=== PATIENT | female | born 1965 | race Hispanic/Latino ===

== ENCOUNTER 2020-08-26 18:16 | Observation (INO) | payer MEDICARE, OTHER ==
[2020-08-26] MEDS ORDERED: Aspirin 325 MG TAB PO SCH (22:45)
--- NOTE | 2020-08-27 01:30 | HP ---
REASON FOR ADMISSION: Right facial droop. HISTORY OF PRESENT ILLNESS: This is a 55-year-old female patient, who was noted to have right facial droop day of her presentation. She is not sure when that happened. This was noticed by her sister. Currently, her facial droop is improving. Otherwise, she denies weakness in her upper or lower extremities. No visual changes. No tingling or numbness in her upper or lower extremities. Just a slurred speech that is associated with her facial droop. PAST MEDICAL HISTORY: 1. Depression. 2. Anxiety. ALLERGIES: NO NOTE OF ANY DRUG ALLERGIES. SOCIAL HISTORY: She does not smoke. Does not drink alcohol. FAMILY HISTORY: Negative for premature coronary artery disease. REVIEW OF SYSTEMS: All systems reviewed except the facial droop found to be negative. PHYSICAL EXAMINATION: GENERAL: Awake, alert, oriented, does not appear in distress. VITAL SIGNS: Her blood pressure is 115/73, heart rate of 56, saturating 99% room air. HEAD: Nontraumatic, normocephalic. Pupils equal, reactive. Extraocular muscles intact. Nonicteric sclerae. Well injected conjunctivae. Oral mucosa normal. Nasal mucosa normal. NECK: Supple. No adenopathy. No murmur. Thyroid is not palpable. Trachea is midline. No supraclavicular adenopathy. HEART: S1, S2 regular. No murmur. No gallops. No friction rubs. No displacement of PMI. LUNGS: Clear to auscultation bilaterally. No wheezes, rhonchi, or crackles. ABDOMEN: Bowel sounds are positive. Nontender abdomen. No hepatosplenomegaly. EXTREMITIES: No lower extremity edema. No cyanosis. NEURO: She does have right facial droop, but normal motor function throughout all four extremities. Normal sensory function as well. LABORATORY DATA: Blood work shows WBC of 8.9, hemoglobin 13.3, platelets 248. INR 1, PTT 29.8, sodium 137, potassium 3.8, BUN 18, bicarb of 20, glucose 116. CT of the head shows no acute finding. CT angio of the head and neck, no central intracranial arterial occlusion. EKG shows normal sinus rhythm with nonspecific ST-segment abnormality. ASSESSMENT AND PLAN: This is a 55-year-old female patient, who is presenting with right facial droop that has been improving. She was offered tPA since she was improving, both the patient and her sister opted against tPA. The patient will be admitted to the stroke unit and we will do an MRI of the brain without contrast and we will consult Neurology. Also have her on full-dose aspirin on daily bases. We will do an echocardiogram, we will check HbA1c. We will check lipid profile. For DVT prophylaxis, she will be SCDs and Lovenox. Next, she did have a low bicarb level. We will recheck her electrolytes in the morning. Job ID: [id number]
[2020-08-27 03:09] VITALS: BMI 42.3
[2020-08-27 04:10] LABS: Hemoglobin A1c 5.6 % (4.0-6.0)
[2020-08-27 04:28] LABS: Anion Gap 13 mmol/L (10-20); BUN (Urea Nitrogen) 20 mg/dL (9.8-20.1); Calc. Creatinine Clearance 122 mL/min (70-130); Calcium 9.1 mg/dL (7.8-10.44); Carbon Dioxide 24 mmol/L (22-29); Cardiac Risk 3.7 (Less than 4.5); Chloride 107 mmol/L (98-107); Cholesterol 168 mg/dl (< 200 Desired); Estimated GFR-MDRD 63; Glucose 95 mg/dL (70-105); HDL Cholesterol 45 mg/dL (>60 Neg Risk); LDL Cholesterol, Calculated 99 mg/dL; Potassium 3.8 mmol/L (3.5-5.1); Sodium 140 mmol/L (136-145); Triglycerides 121 mg/dL (Less than 150)
[2020-08-27] MEDS ORDERED: Aspirin 325 mg Enteric Coated Tablet PO SCH (09:00)
[2020-08-27] MEDS ORDERED: Enoxaparin Sodium 40 MG/0.4 ML SYRINGE SC SCH (09:00)
--- NOTE | 2020-08-27 09:13 | PDOC.HOSPP ---
- Subjective Encounter Date: 08/27/20 Encounter Time: 09:45 Subjective: Patient denies complaints. Sister in room notes that right facial droop much better. No more slurred speech. - Objective Vital Signs & Weight: Vital Signs (12 hours) Temp Pulse Resp BP Pulse Ox 08/27/20 08:00 97.7 F 68 13 133/74 98 Weight Weight 246 lb 14.684 oz Result Diagrams: 08/27/20 03:49 Hospitalist ROS - Review of Systems Constitutional: denies: fever, chills Respiratory: denies: cough, shortness of breath Cardiovascular: denies: chest pain, palpitations Gastrointestinal: denies: nausea, vomiting, abdominal pain - Exam General Appearance: NAD, awake alert ENT: moist mucosa Heart: RRR, no murmur, no gallops, no rubs Respiratory: CTAB, no wheezes, no rales, no ronchi Gastrointestinal: soft, non-tender, non-distended, normal bowel sounds Neurological - other findings: minimal right facial droop Psychiatric: normal affect, normal behavior, A&O x 3 Hosp A/P (1) Facial droop Code(s): R29.810 - FACIAL WEAKNESS Status: Acute Plan: right sided, improving (2) Depression Code(s): F32.9 - MAJOR DEPRESSIVE DISORDER, SINGLE EPISODE, UNSPECIFIED Status: Chronic Qualifiers: Depression Type: major depressive disorder (3) Anxiety Code(s): F41.9 - ANXIETY DISORDER, UNSPECIFIED Status: Chronic - Plan MRI, ASA, Stroke team, neurology. Check lipid profile- normal. If does have stroke will need statin. ECHO If MRI negative could be mostly resolved TIA. Doubt Tang's Palsy with fast improvement of symptoms.
--- NOTE | 2020-08-27 09:13 | MRI ---
MRI of thebrain: 08/27/2020 COMPARISON:None available HISTORY:Recent stroke protocol, slurred speech with facial droop on the right TECHNIQUE: Multiplanar multisequence MR imaging of thebrain without contrast Findings:The diffusion weighted imaging demonstrates no evidence for acute infarction. The axial grad ient echo imaging demonstrates no evidence for intracranial hemorrhage. No intracranial hemorrhage, midline shift, or mass effect. No significant paranasal sinus opacificati on. Arterial flow voids at the axial level of the skull base appear grossly unremarkable on the T2-weighted imaging. Regional bone marrow signal intensity within normal limits. IMPRESSION:No acute findings.
[2020-08-27 10:06] LABS: Cardiac Risk 3.3 (Less than 4.5)
[2020-08-27] MEDS ORDERED: Enoxaparin Sodium 40 MG/0.4 ML SYRINGE ONE (10:50)
[2020-08-27] MEDS ORDERED: Aspirin 325 MG TAB ONE (10:50)
--- NOTE | 2020-08-27 13:57 | CON ---
NEUROLOGY CONSULTATION DATE OF CONSULTATION: 08/27/2020 REASON FOR CONSULTATION: Right facial droop and slurred speech. HISTORY OF PRESENT ILLNESS: Ms. Wanda Ureña is a 55-year-old female, who presented to the emergency room at outside Hospital with right facial droop and slurred speech. The history is provided by the patient's sister. According to the sister, she was told by her mother that she had right facial droop and speech was slurred around noon yesterday. She went to her mother's house to check on her and found that she had slurred speech and right facial droop. She took her to the [facility] with a head CT was done, which was negative for acute intracranial pathology. CTA of the head and neck was done, which was negative for hemodynamically significant stenosis. She was transferred here for further evaluation. Her symptoms resolved around 06:00 p.m. yesterday. The patient denies any focal weakness, focal paresthesias, nausea, vomiting, headache, chest pain, abdominal pain, recent illness, or recent exposure to COVID. Patient is disabled and lives with her sister. She has history of significant depression and anxiety. REVIEW OF SYSTEMS: All systems reviewed and were negative except for the pertinent positives and negatives mentioned in the HPI. ALLERGIES: NO KNOWN DRUG ALLERGIES. SOCIAL HISTORY: The patient is independent. Lives with her sister. Denies smoking, alcohol, or illegal drug abuse. FAMILY HISTORY: No family history of premature coronary artery disease or stroke. Vital Signs & Weight: Vital Signs (12 hours) Temp Pulse Resp BP Pulse Ox 08/27/20 08:00 97.7 F 68 13 133/74 98 Weight Weight 246 lb 14.684 oz PHYSICAL EXAMINATION: VITAL SIGNS: Blood pressure 117/70, pulse 60, respiratory rate 18. General Appearance: NAD, awake alert ENT: moist mucosa Heart: RRR, no murmur, no gallops, no rubs Respiratory: CTAB, no wheezes, no rales, no ronchi Gastrointestinal: soft, non-tender, non-distended, normal bowel sounds Neurological - Mental status, the patient is alert and oriented to person, place, and time. Speech is clear. Recent and remote memory, intact. Cranial nerves 2 through 12 intact except seventh septal right facial droop. Motor, muscle tone and bulk are normal. Moving all 4 extremities equally and symmetrically. Strength 5/5 bilaterally. Sensory intact. Cerebellar; finger-nose testing intact. Gait deferred due to patient's safety reasons. DATA REVIEWED: I reviewed the labs and also the CT scan of the head, which showed no acute intracranial pathology. CT angiogram of the head and neck did not reveal hemodynamically significant stenosis. EKG showed normal sinus rhythm. ASSESSMENT AND PLAN: (1) Facial droop Code(s): R29.810 - FACIAL WEAKNESS Status: Acute Plan: right sided, improving (2) Depression Code(s): F32.9 - MAJOR DEPRESSIVE DISORDER, SINGLE EPISODE, UNSPECIFIED Status: Chronic Qualifiers: Depression Type: major depressive disorder (3) Anxiety Code(s): F41.9 - ANXIETY DISORDER, UNSPECIFIED Status: Chronic Ms. Wanda Ureña is a 55-year-old female, who presented with right facial droop and slurred speech. Neurological deficits are now improved, most likely TIA. MRI of the brain reviewed, which was negative for acute intracranial pathology. CTA of the head and neck did not reveal hemodynamically significant stenosis. Telemetry and 2D echo to evaluate for left ventricular ejection fraction. Neuro checks every 4 hours. Start aspirin and high- intensity statin for secondary stroke prevention. Continue home medications. Continue medical management per primary team, PT/OT/Speech. DVT prophylaxis. We will continue to follow. Thank you for the consult. Job ID: [id number] [facility]
[2020-08-27 14:58] LABS: SARS-CoV-2 MS2 Positive; SARS-CoV-2 N Gene Negative; SARS-CoV-2 S Gene Negative; SARS-CoV-2 by NAA Not Detected (NotDetected); SARS-CoV-2 orf1ab Negative
[2020-08-27 16:23] VITALS: BP 125/82; TEMP 97.5
[2020-08-27] MEDS ORDERED: risperiDONE 1 MG TAB PO SCH (21:00)
[2020-08-27] MEDS ORDERED: Lorazepam 1 MG TAB PO SCH (21:00)
[2020-08-27] MEDS ORDERED: Citalopram 20 MG TAB PO SCH (21:00)
[2020-08-27] MEDS ORDERED: Atorvastatin Calcium 40 MG TAB PO SCH (21:00)
--- NOTE | 2020-08-29 01:36 | DIS ---
DATE OF ADMISSION: 08/26/2020 DATE OF DISCHARGE: 08/27/2020 PRIMARY CARE PHYSICIAN: Dr. Charly Reid. REASON FOR ADMISSION: Right facial droop. DIAGNOSES AT DISCHARGE: 1. Transient ischemic attack with right facial droop, resolved. 2. Depression. 3. Anxiety. PROCEDURES: 1. MRI of the brain showing no acute findings, no evidence for stroke. 2. Echocardiogram showing ejection fraction of 55% to 60% without any significant abnormalities. 3. CT angio of the head and neck showing no acute findings. No evidence for central intracranial artery occlusion and no hemodynamically significant stenosis of the arterial structures of the neck. 4. CT of the brain showing no acute intracranial abnormalities. CONSULTATIONS: Neurology Dr. Boucher. SUMMARY OF HOSPITAL COURSE: This is a 55-year-old female with a history of anxiety, who presented to the [facility] room with a right-sided facial droop and slurred speech. She had a negative CTA of the head and neck there, was transferred to our hospital. She had improvement in her symptoms and then resolution over the course of her hospital observation. She had no other symptoms noted. She had a negative MRI and negative echo, so she was cleared for discharge by Neurology. DISCHARGE MANAGEMENT: DISPOSITION: Discharged home. ACTIVITY: As tolerated. DIET: Healthy heart low-sodium diet. DISCHARGE FOLLOWUP: Follow up with Dr. Ried in 7 days. DISCHARGE MEDICATIONS: 1. Aspirin 325 mg daily, 30 tablets dispensed. 2. Atorvastatin 40 mg each night, 30 tablets dispensed. 3. Citalopram 20 mg daily. 4. Lorazepam 1 mg each night. 5. Risperidone 2 mg each night. 6. Meloxicam as needed. Job ID: [id number]
== END 2020-08-27 18:40 | disposition home or self-care (01) ==
LOC: ERS 18:16 → ERHOLD 18:39
PROVIDERS: ADMIT Internal Medicine; ATTEND Emergency Medicine
DX: G45.9 Transient cerebral ischemic attack, unspecified (principal); F32.9 Major depressive disorder, single episode, unspecified; F41.9 Anxiety disorder, unspecified; Z79.899 Other long term (current) drug therapy; Z20.828 Contact with and (suspected) exposure to other viral communicable diseases
CPT/HCPCS: 70551; 80048; 80061; 83036; 93306; 97139 ×3; 99285; U0003; 36415; 87635; J1650